=== PATIENT | female | born 1975 | race Caucasian/White ===

== ENCOUNTER 2020-05-31 07:45 | Outpatient (CLI) | payer OTHER ==
[2020-05-31 11:33] LABS: #Eosinphils 0.1 thou/uL (0.0-0.7); #Lymphocytes 2.2 thou/uL (1.20-3.40); #Monocytes 0.4 thou/uL (0.11-0.59); #Neutrophils 4.1 thou/uL (1.40-6.50); %Basophils 0.5 % (0.0-1.0); %Eosinophils 0.9 % (0.0-10.0); %Monocytes 5.3 % (0.0-10.0); %Neutrophils 61.2 % (42.0-75.0); Hemoglobin 13.3 g/dL (12.0-16.0); Mean Corpuscular HGB CONC 32.5 g/dL (32.0-36.0); Mean Corpuscular Hemoglobin 27.2 pg (27.0-31.0); Mean Corpuscular Volume 83.7 fL (78.0-98.0); Mean Platelet Volume 8.5 fL (7.4-10.4); Platelet Count 316 thou/uL (130-400); RBC Distribution Width 14.3 % (11.5-14.5); Red Blood Cell (RBC) Count 4.91 mill/uL (4.20-5.40); White Blood Cell (WBC) Count 6.8 thou/uL (4.8-10.8)
[2020-05-31 13:03] LABS: ALT (SGPT) 22 U/L (8-55); AST (SGOT) 22 U/L (5-34); Albumin 3.9 g/dL (3.5-5.0); Alkaline Phosphatase 123 U/L (40-110); Anion Gap 14 mmol/L (10-20); BUN (Urea Nitrogen) 14 mg/dL (7.0-18.7); Bilirubin, Total 0.4 mg/dL (0.2-1.2); Calc. Creatinine Clearance 0 mL/min (70-130); Carbon Dioxide 24 mmol/L (22-29); Cardiac Risk 4.4 (Less than 4.5); Chloride 102 mmol/L (98-107); Cholesterol 212 mg/dl (< 200 Desired); Estimated GFR-MDRD Greater than 90; Globulin 3.5 g/dL (2.4-3.5); Glucose 105 mg/dL (70-105); HDL Cholesterol 48 mg/dL (>60 Neg Risk); LDL Cholesterol, Calculated 139 mg/dL; Potassium 3.8 mmol/L (3.5-5.1); Protein, Total 7.4 g/dL (6.0-8.3); Sodium 136 mmol/L (136-145); Triglycerides 127 mg/dL (Less than 150)
--- NOTE | 2020-05-31 15:02 | EKG ---
Test Reason : PREOP Blood Pressure : / mmHG Vent. Rate : 065 BPM Atrial Rate : 065 BPM P-R Int : 134 ms QRS Dur : 082 ms QT Int : 436 ms P-R-T Axes : 040 061 050 degrees QTc Int : 453 ms Normal sinus rhythm Normal ECG No previous ECGs available Confirmed by VILMA SANCHES (2) on 05/31/2020 3:01:48 PM Referred By: Zelalem MEADE Confirmed By:VILMA SANCHES
[2020-05-31 17:27] LABS: SARS-CoV-2 MS2 Positive; SARS-CoV-2 N Gene Negative; SARS-CoV-2 S Gene Negative; SARS-CoV-2 by NAA Not Detected (NotDetected); SARS-CoV-2 orf1ab Negative
== END 2020-05-31 07:46 | disposition home or self-care (01) ==
LOC: LABBT 07:45
PROVIDERS: ATTEND Internal Medicine Cardiovascular Disease
DX: Z01.818 Encounter for other preprocedural examination (principal); Z20.828 Contact with and (suspected) exposure to other viral communicable diseases
CPT/HCPCS: 80053; 80061; 85025; 87635; 93005; 93010; U0003

== ENCOUNTER 2020-06-03 06:00 | Day surgery (SDC) | payer OTHER ==
[2020-06-02 10:26] VITALS: BMI 54.3
[2020-06-03 06:43] LABS: BHCG - Serum Negative (NEGATIVE); Pregs Control Background? CLEAR/WHITE (CLR/WHITE); Pregs Control Bar Appear? YES (CONTROL BAR)
[2020-06-03] MEDS ORDERED: Verapamil 5 MG/2 ML VIAL ONE (07:11)
[2020-06-03] MEDS ORDERED: Heparin 10,000 UNITS/ 10 ML VIAL ONE (07:11)
[2020-06-03] MEDS ORDERED: Nitroglycerin 100MG/250ML BOT 250 ML ONE (07:11)
[2020-06-03] MEDS ORDERED: Fentanyl 100 MCG/2 ML VIAL ONE (07:46)
[2020-06-03] MEDS ORDERED: Midazolam HCl 2 mg/2 ml Vial ONE (07:46)
[2020-06-03] MEDS ORDERED: Iopamidol 370 76% 100 ML VIAL ONE (14:54)
== END 2020-06-03 10:55 | disposition home or self-care (01) ==
LOC: CCL 06:00
PROVIDERS: ATTEND Internal Medicine Cardiovascular Disease
PROC: B2111ZZ Fluoroscopy of Multiple Coronary Arteries using Low Osmolar Contrast (ICD-10-PCS; principal; 2020-06-03)
PROC: 4A023N7 Measurement of Cardiac Sampling and Pressure, Left Heart, Percutaneous Approach (ICD-10-PCS; principal; 2020-06-03)
DX: I25.10 Atherosclerotic heart disease of native coronary artery without angina pectoris (principal); I10 Essential (primary) hypertension; F17.210 Nicotine dependence, cigarettes, uncomplicated; F34.1 Dysthymic disorder; J30.9 Allergic rhinitis, unspecified; E66.9 Obesity, unspecified; Z68.43 Body mass index [BMI] 50.0-59.9, adult; Z79.899 Other long term (current) drug therapy
CPT/HCPCS: 36415; 76942; 84703; 93458; 99152; 99153; J1644; J2250; J3010; Q9967

== ENCOUNTER 2022-03-21 12:43 | Emergency (ER) | payer BC ==
[2022-03-21 14:44] LABS: #Lymphocytes 1.8 thou/uL (1.20-3.40); #Monocytes 0.5 thou/uL (0.11-0.59); #Neutrophils 9.9 thou/uL (1.40-6.50); %Basophils 0.3 % (0.0-1.0); %Eosinophils 0.2 % (0.0-10.0); %Lymphocytes 14.7 % (21.0-51.0); %Neutrophils 80.8 % (42.0-75.0); Hemoglobin 11.6 g/dL (12.0-16.0); Mean Corpuscular HGB CONC 31.7 g/dL (32.0-36.0); Mean Corpuscular Hemoglobin 24.6 pg (27.0-31.0); Mean Corpuscular Volume 77.8 fL (78.0-98.0); Mean Platelet Volume 8.3 fL (7.4-10.4); Platelet Count 322 thou/uL (130-400); RBC Distribution Width 16.3 % (11.5-14.5); Red Blood Cell (RBC) Count 4.73 mill/uL (4.20-5.40); White Blood Cell (WBC) Count 12.3 thou/uL (4.8-10.8)
[2022-03-21 14:52] LABS: BHCG - Serum Negative (NEGATIVE); Pregs Control Background? CLEAR/WHITE (CLR/WHITE); Pregs Control Bar Appear? YES (CONTROL BAR)
[2022-03-21 15:08] LABS: ALT (SGPT) 18 U/L (8-55); AST (SGOT) 21 U/L (5-34); Alkaline Phosphatase 146 U/L (40-110); Anion Gap 16 mmol/L (10-20); BUN (Urea Nitrogen) 18 mg/dL (7.0-18.7); Bilirubin, Total 0.3 mg/dL (0.2-1.2); Calc. Creatinine Clearance 0 mL/min (70-130); Calcium 9.4 mg/dL (7.8-10.44); Carbon Dioxide 23 mmol/L (22-29); Chloride 99 mmol/L (98-107); Estimated GFR 83; Globulin 3.9 g/dL (2.4-3.5); Glucose 110 mg/dL (70-105); Lipase 17 U/L (8-78); Potassium 3.7 mmol/L (3.5-5.1); Protein, Total 7.9 g/dL (6.0-8.3); Sodium 134 mmol/L (136-145)
[2022-03-21] MEDS ORDERED: Ketorolac Tromethamine 30 MG/ML VIAL ONE (15:22)
[2022-03-21] MEDS ORDERED: Ondansetron PF 4 MG/2 ML Vial ONE (15:22)
[2022-03-21] MEDS ORDERED: Morphine 4 MG/ML VIAL ONE (15:51)
[2022-03-21 16:02] LABS: Bilirubin Negative (Negative); Blood, Urine 3+ (Negative); Clarity Clear (Clear); Glucose, Urine (Dipstick) Normal (Negative); Ketone, Urine Negative (Negative); Leukocyte Negative Leu/uL (Negative); Nitrite Negative (Negative); Protein, Urine (Dipstick) Negative (Neg-Trace); RBC/HPF 21-50 HPF (0-3); Specific Gravity, Urine 1.019 (1.002-1.036); Squamous Epithelial 0-3 HPF (0-3); Urobilinogen Normal mg/dL (Less than 2); WBC/HPF 0-3 HPF (0-3); pH, Urine 7.5 (5.0-9.0)
[2022-03-21 16:04] LABS: Bacteria/HPF 1+ HPF (None Seen)
== END 2022-03-21 16:55 | disposition home or self-care (01) ==
LOC: ERS 12:43 → EEVIPCON 12:43 → ERS 16:55
DX: N13.2 Hydronephrosis with renal and ureteral calculous obstruction (principal); N28.89 Other specified disorders of kidney and ureter; I10 Essential (primary) hypertension; Z79.899 Other long term (current) drug therapy
CPT/HCPCS: 36415; 74176; 80053; 81003; 81015; 83690; 84703; 85025; 96361; 96374; 96375; J1885; J2270; J2405

== ENCOUNTER 2022-04-10 08:33 | Outpatient (CLI) | payer BC ==
[2022-04-10] MEDS ORDERED: Magnevist 469MG/ML 20 ML VIAL ONE (09:37)
== END 2022-04-10 08:34 | disposition home or self-care (01) ==
LOC: TBSIIMAG 08:33
PROVIDERS: ATTEND Family Medicine
DX: N28.89 Other specified disorders of kidney and ureter (principal)
CPT/HCPCS: 74183; A9579

== ENCOUNTER 2022-04-19 08:54 | Outpatient (CLI) | payer BC | END 2022-04-19 08:55 | disposition home or self-care (01) | LOC: PET 08:54 | PROVIDERS: ATTEND Family Medicine | DX: N28.89 Other specified disorders of kidney and ureter (principal) | CPT/HCPCS: 78815; A9552 ==

== ENCOUNTER 2022-05-03 09:33 | Outpatient (CLI) | payer BC | END 2022-05-03 09:34 | disposition home or self-care (01) | LOC: CT 09:33 | PROVIDERS: ATTEND Urology | DX: I25.10 Atherosclerotic heart disease of native coronary artery without angina pectoris (principal); N13.2 Hydronephrosis with renal and ureteral calculous obstruction; N28.89 Other specified disorders of kidney and ureter | CPT/HCPCS: 71260; 74175; 74178; 78306; A9503 ==

== ENCOUNTER 2022-10-03 20:24 | Emergency (ER) | payer BC ==
[2022-10-03 20:50] LABS: Bilirubin Negative (Negative); Blood, Urine 3+ (Negative); Clarity Turbid (Clear); Glucose, Urine (Dipstick) Normal (Negative); Ketone, Urine Negative (Negative); Leukocyte 25 Leu/uL (Negative); Nitrite Negative (Negative); Protein, Urine (Dipstick) 20 mg/dL (Neg-Trace); RBC/HPF Greater than 50 HPF (0-3); Specific Gravity, Urine 1.012 (1.002-1.036); Squamous Epithelial 0-3 HPF (0-3); Urobilinogen Normal mg/dL (Less than 2)
[2022-10-03 20:52] LABS: Bacteria/HPF 1+ HPF (None Seen)
[2022-10-03 21:02] LABS: #Eosinphils 0.2 thou/uL (0.0-0.7); #Lymphocytes 3.7 thou/uL (1.20-3.40); #Monocytes 0.9 thou/uL (0.11-0.59); %Eosinophils 1.2 % (0.0-10.0); %Lymphocytes 26.7 % (21.0-51.0); %Monocytes 6.4 % (0.0-10.0); %Neutrophils 65.7 % (42.0-75.0); Hemoglobin 10.1 g/dL (12.0-16.0); Mean Corpuscular HGB CONC 32.6 g/dL (32.0-36.0); Mean Corpuscular Hemoglobin 25.7 pg (27.0-31.0); Mean Corpuscular Volume 78.8 fl (78.0-98.0); Mean Platelet Volume 8.3 fL (7.4-10.4); Platelet Count 261 10x3/uL (130-400); RBC Distribution Width 16.7 % (11.5-14.5); Red Blood Cell (RBC) Count 3.94 mill/uL (4.20-5.40); White Blood Cell (WBC) Count 13.7 10x3/uL (4.8-10.8)
[2022-10-03 21:22] LABS: ALT (SGPT) 21 U/L (8-55); AST (SGOT) 39 U/L (5-34); Alkaline Phosphatase 122 U/L (40-110); Anion Gap 17 mmol/L (10-20); BUN (Urea Nitrogen) 17 mg/dL (7.0-18.7); Bilirubin, Total 0.4 mg/dL (0.2-1.2); Calc. Creatinine Clearance 0 mL/min (70-130); Calcium 8.3 mg/dL (7.8-10.44); Carbon Dioxide 16 mmol/L (22-29); Chloride 106 mmol/L (98-107); Estimated GFR 63; Globulin 3.6 g/dL (2.4-3.5); Glucose 93 mg/dL (70-105); Lipase 33 U/L (8-78); Potassium 3.8 mmol/L (3.5-5.1); Protein, Total 7.6 g/dL (6.0-8.3); Sodium 135 mmol/L (136-145)
[2022-10-03 21:32] LABS: Pregnancy Test - Urine (BHCG) Negative (Negative)
[2022-10-03 21:33] LABS: Pregu Control Background? CLEAR/WHITE (CLR/WHITE); Pregu Control Bar Appear? YES (CONTROL BAR); Specific Gravity 1.012 (1.002-1.036)
== END 2022-10-03 22:57 | disposition home or self-care (01) ==
LOC: ERS 20:24
DX: R31.9 Hematuria, unspecified (principal); D72.829 Elevated white blood cell count, unspecified; I10 Essential (primary) hypertension; Z79.899 Other long term (current) drug therapy
CPT/HCPCS: 36415; 80053; 81003; 81015; 81025; 83605; 83690; 85025

== ENCOUNTER 2023-05-06 17:00 | Outpatient (CLI) | payer BC | END 2023-05-06 17:01 | disposition home or self-care (01) | LOC: SLEEPLAB 17:00 | PROVIDERS: ATTEND Family Medicine | DX: G47.33 Obstructive sleep apnea (adult) (pediatric) (principal); R53.83 Other fatigue; E66.9 Obesity, unspecified; R06.83 Snoring; I10 Essential (primary) hypertension; Z68.44 Body mass index [BMI] 60.0-69.9, adult | CPT/HCPCS: 95800 ==

== ENCOUNTER 2023-05-28 10:04 | Outpatient (CLI) | payer BC | END 2023-05-28 10:05 | disposition home or self-care (01) | LOC: BICMAMMO 10:04 | PROVIDERS: ATTEND Family Medicine | DX: Z12.31 Encounter for screening mammogram for malignant neoplasm of breast (principal) | CPT/HCPCS: 77063; 77067 ==

== ENCOUNTER 2023-06-05 17:00 | Outpatient (CLI) | payer BC | END 2023-06-05 17:01 | disposition home or self-care (01) | LOC: SLEEPLAB 17:00 | PROVIDERS: ATTEND Family Medicine | DX: G47.33 Obstructive sleep apnea (adult) (pediatric) (principal); I10 Essential (primary) hypertension; E66.9 Obesity, unspecified; R06.83 Snoring; R53.83 Other fatigue; Z68.44 Body mass index [BMI] 60.0-69.9, adult | CPT/HCPCS: 95811 ==

== ENCOUNTER 2023-06-06 07:53 | Outpatient (CLI) | payer BC | END 2023-06-06 07:54 | disposition home or self-care (01) | LOC: CT 07:53 | PROVIDERS: ATTEND Urology | DX: N20.0 Calculus of kidney (principal); N28.89 Other specified disorders of kidney and ureter; Z90.5 Acquired absence of kidney | CPT/HCPCS: 74170 ==

== ENCOUNTER 2023-09-23 10:21 | Outpatient (CLI) | payer BC ==
[2023-09-23] MEDS ORDERED: Iopamidol-370 76% 500 ML MDV (1 ML CHARGE) ONE (11:00)
== END 2023-09-23 10:22 | disposition home or self-care (01) ==
LOC: BICCT 10:21
PROVIDERS: ATTEND Family Medicine
DX: N28.89 Other specified disorders of kidney and ureter (principal); M89.9 Disorder of bone, unspecified; K43.9 Ventral hernia without obstruction or gangrene; K42.9 Umbilical hernia without obstruction or gangrene; Z90.5 Acquired absence of kidney; Z90.49 Acquired absence of other specified parts of digestive tract
CPT/HCPCS: 74178; 82565

== ENCOUNTER 2023-10-01 09:50 | Day surgery (SDC) | payer BC ==
[2023-09-27 11:20] VITALS: BMI 63.3
[2023-10-01] MEDS ORDERED: PROPOFOL 40 ML ONE (11:53)
[2023-10-01] MEDS ORDERED: Lidocaine 2% PF 5 ML VIAL ONE (11:53)
[2023-10-01] MEDS ORDERED: PROPOFOL 20 ML ONE (12:34)
== END 2023-10-01 13:20 | disposition home or self-care (01) ==
LOC: SDC 09:50
PROVIDERS: ATTEND Internal Medicine Gastroenterology
PROC: 0DBL8ZZ Excision of Transverse Colon, Via Natural or Artificial Opening Endoscopic (ICD-10-PCS; principal; 2023-10-01)
PROC: 0DBN8ZZ Excision of Sigmoid Colon, Via Natural or Artificial Opening Endoscopic (ICD-10-PCS; principal; 2023-10-01)
DX: Z12.11 Encounter for screening for malignant neoplasm of colon (principal); K63.5 Polyp of colon; K64.8 Other hemorrhoids; K63.89 Other specified diseases of intestine; I10 Essential (primary) hypertension; I25.10 Atherosclerotic heart disease of native coronary artery without angina pectoris; E78.2 Mixed hyperlipidemia; Z90.49 Acquired absence of other specified parts of digestive tract; Z79.899 Other long term (current) drug therapy
CPT/HCPCS: 88305; J2001; J2704